=== PATIENT | female | born 1995 ===

== ENCOUNTER 2016-10-23 09:14 | Emergency (ER) | payer OTHER ==
--- NOTE | 2016-10-23 09:46 | UC ---
Eye Complaint HPI - HPI Summary HPI Summary: ONSET OF LEFT EYE REDNESS, IRRITATION, CLEAR DRAINAGE YESTERDAY. WOKE UP THIS MORNING WITH EYE CRUSTED SHUT. HAS SOME SLIGHT UPPER EYELID EDEMA. HAS HAD URI SX PAST SEVERAL DAYS. HO FEVER, NAUSEA, AHN, PHOTOPHOBIA OR VISUAL DISTURBANCE. NO PAIN WITH EOM. NO FB SENSATION. - History of Current Complaint Chief Complaint: UCEye Stated Complaint: EYE COMPLAINT Time Seen by Provider: 10/23/16 09:31 Hx Obtained From: Patient Hx Last Menstrual Period: September 2015 Onset/Duration: Gradual Onset, Lasting Hours, Still Present Timing: Constant Severity Initially: Moderate Severity Currently: Moderate Pain Intensity: 4 Pain Scale Used: 0-10 Numeric Location of Injury: Conjunctiva Aggravating Factor(s): Nothing Alleviating Factor(s): Nothing Associated Signs And Symptoms: Positive: Drainage (Clear). Negative: Photophobia, Drainage (Purulent), Vision Impairment Bilateral, Vision Impairment Right, Vision Impairment Left, Fever - Allergies/Home Medications Allergies/Adverse Reactions: Allergies Allergy/AdvReac Type Severity Reaction Status Date / Time Clarithromycin [From Biaxin] Allergy Anaphylatic Verified 10/23/16 09:24 Shock Home Medications: Home Medications Norethindrone Acetate-Ethinyl [Lo Loestrin Fe 1 mg-10 Mcg / 10 Mcg] 1 tab PO DAILY 10/23/16 [History Confirmed 10/23/16] PMH/Surg Hx/FS Hx/Imm Hx Previously Healthy: Yes - Surgical History Surgical History: None - Family History Known Family History: Negative: Hypertension - Social History Alcohol Use: Occasionally Substance Use Type: None Smoking Status (MU): Never Smoked Tobacco - Immunization History Most Recent Influenza Vaccination: None Most Recent Tetanus Shot: UTD Most Recent Pneumonia Vaccination: n/a Review of Systems Constitutional: Negative Skin: Negative Eyes: Drainage, Eye Redness ENT: Nasal Discharge Respiratory: Cough Cardiovascular: Negative Gastrointestinal: Negative Genitourinary: Negative All Other Systems Reviewed And Are Negative: Yes Physical Exam Triage Information Reviewed: Yes Appearance: Well-Appearing, No Pain Distress, Well-Nourished Vital Signs: Initial Vital Signs Temp 97.6 F 10/23/16 09:24 Pulse 57 10/23/16 09:24 Resp 18 10/23/16 09:24 BP 116/75 10/23/16 09:24 Pulse Ox 99 10/23/16 09:24 Vital Signs Reviewed: Yes Eyes: Positive: Conjunctiva Inflamed, Discharge, Other: - PERRL, EOM. SLIGHT LEFT UPPER EYELID EDEMA ENT: Positive: Hearing grossly normal, Pharynx normal, TMs normal Neck: Positive: Supple, Nontender, No Lymphadenopathy Respiratory Exam: Normal Cardiovascular Exam: Normal Abdomen Description: Positive: Soft Musculoskeletal: Positive: No Edema Neurological: Positive: Alert Psychological: Positive: Age Appropriate Behavior Skin: Negative: rashes Eye Complaint Course/Dx - Differential Dx/Diagnosis Provider Diagnoses: LEFT EYE CONJUNCTIVITIS Discharge - Discharge Plan Condition: Stable Disposition: HOME Prescriptions: Ciprofloxacin 0.3% OPTH.THA* [Cipro 0.3% Opth*] 1 drop LEFT EYE Q4H #1 btl Patient Education Materials: Conjunctivitis (ED) Referrals: [facility] [Outside] - If Needed Additional Instructions: USE 1 DROP EVERY 4 HOURS WHILE AWAKE UNTIL SYMPTOMS ARE RESOLVED AND THEN FOR AN EXTRA 2 DAYS. SEEK FOLLOW-UP IF YOU SYMPTOMS ARE NOT IMPROVING EXPECTED.
== END 2016-10-23 10:16 | disposition home or self-care (01) ==
LOC: UCEAST 09:14
DX: H10.9 Unspecified conjunctivitis (principal); Z88.3 Allergy status to other anti-infective agents
CPT/HCPCS: 99202; G0463